=== PATIENT | male | born 1965 | race African-American/Black ===

== ENCOUNTER 2020-06-06 15:37 | Inpatient (IN) ==
[2020-06-06] MEDS ORDERED: SODIUM CHLORIDE 0.9% 1,000 ML IV STA (16:19)
[2020-06-06 16:28] LABS: Bacteria,Urine Occasional /HPF (Few); Bilirubin,Urine Negative (Negative); Blood, Urine Small mg/dL (Negative); Glucose,Urine (UA) Negative (Negative); Ketones,Urine Negative (Negative); Mucus,Urine Occasional /LPF (Occasional); Nitrite,Urine Negative (Negative); Protein,Urine 30 MG/DL; RBC,Urine 9 /HPF (0-4); Squamous Epithelial Cell,Urine Occasional /HPF (0-10); Urine Appearance CLOUDY (Clear); Urine Color Yellow (Yellow); Urine Specific Gravity 1.015 (1.001-1.035); Urine Urobilinogen < 2.0 EU/DL (0.2-1.0); WBC,Urine 581 /HPF (0-6)
[2020-06-06 16:44] LABS: Barbiturates Screen,Urine Negative (Negative); Benzodiazepines Screen,Urine Negative (Negative); Cannabinoid Screen,Urine Negative (Negative); Opiate Screen,Urine Negative (Negative); Phencyclidine Screen,Urine Negative (Negative)
[2020-06-06] MEDS ORDERED: cefTRIAXone 1,000 MG in SODIUM CHLORIDE 0.9% 100 ML IV STA (16:52)
[2020-06-06] MEDS ORDERED: cefTRIAXone 1,000 MG VIAL ONE (16:53)
[2020-06-06 16:59] LABS: Basophils % 0.2 % (0.0-0.8); Hematocrit 45.1 VOL% (42.0-52.0); Hemoglobin 14.9 GM/DL (14.0-18.0); Immature Granulocytes % 1.6 %; Immature Granulocytes Absolute 0.33 #; Lymphocytes # 0.9 10*3/uL (1.4-4.0); Lymphocytes % 4.2 % (21.2-54.2); Mean Corpuscular Volume 89.3 FL (87-102); Mean Platelet Volume 9.4 FL (9.6-12.0); Monocytes % 8.4 % (1.7-12.7); Neutrophils % 85.6 % (38.7-73.9); Platelet Count 201 T/CUMM (130-400); Red Blood Count 5.05 MC/CUMM (3.8-5.5); Red Cell Distribution Width 14.9 % (9.3-17.3); White Blood Count 20.9 T/CUMM (4-12)
[2020-06-06 17:22] LABS: Band Neutrophils 12 % (0-10); Lymphocytes 7 % (20-55); Segmented Neutrophils 75 % (50-85); Total Cells Counted 100
[2020-06-06 17:23] LABS: Albumin 3.7 G/DL (3.4-5.0); Bilirubin,Total 0.5 MG/DL (0.2-1.0); Calcium 8.7 MG/DL (8.5-10.1); Platelet Estimate Normal; Potassium 3.2 MMOL/L (3.5-5.1); Total Protein 8.3 G/DL (6.4-8.3)
[2020-06-06 17:40] LABS: Troponin I < 0.015 NG/ML (0.00-0.045)
[2020-06-06] MEDS ORDERED: ACETAMINOPHEN 325 MG TABLET PO PRN (18:32)
[2020-06-06] MEDS ORDERED: DEXTROSE 50% 25 GM/50 ML VIAL IV PRN ×2 (18:32)
[2020-06-06] MEDS ORDERED: ONDANSETRON 4 MG/2 ML VIAL IV PRN (18:32)
[2020-06-06] MEDS ORDERED: GLUCAGON 1 MG VIAL IM PRN ×2 (18:32)
[2020-06-06] MEDS ORDERED: ALBUTEROL 0.63 MG/3 ML NEB RESP TX PRN (18:45)
[2020-06-06] MEDS: BENZTROPINE 1 MG TABLET PO SCH (21:20)
[2020-06-06] MEDS: SODIUM CHLORIDE 0.9% 1,000 ML IV SCH (21:20)
[2020-06-06] MEDS: carvediloL 12.5 MG TABLET PO SCH (22:20)
[2020-06-06] MEDS: INSULIN REGULAR 100 UNIT/ML SUBCUT SCH (22:21)
[2020-06-07] MEDS: SODIUM CHLORIDE 0.9% 1,000 ML IV SCH ×3 (03:15→21:01)
[2020-06-07 05:49] LABS: Basophils # 0.1 10*3/uL (0.0-0.2); Basophils % 0.5 % (0.0-0.8); Eosinophils # 0.3 10*3/uL (0.0-0.87); Eosinophils % 1.3 % (0.00-10.9); Hematocrit 43.9 VOL% (42.0-52.0); Hemoglobin 14.6 GM/DL (14.0-18.0); Immature Granulocytes % 1.3 %; Immature Granulocytes Absolute 0.24 #; Lymphocytes # 1.5 10*3/uL (1.4-4.0); Lymphocytes % 7.8 % (21.2-54.2); Mean Corpuscular HGB Conc 33.3 GM/DL (32-36); Mean Corpuscular Volume 87.5 FL (87-102); Mean Platelet Volume 9.5 FL (9.6-12.0); Monocytes % 9.3 % (1.7-12.7); Neutrophils % 79.8 % (38.7-73.9); Platelet Count 188 T/CUMM (130-400); Red Blood Count 5.02 MC/CUMM (3.8-5.5); Red Cell Distribution Width 14.9 % (9.3-17.3); White Blood Count 18.5 T/CUMM (4-12)
[2020-06-07] MEDS ORDERED: LEVOTHYROXINE 75 MCG TABLET PO SCH (06:00)
[2020-06-07 06:13] LABS: Bilirubin,Total 0.6 MG/DL (0.2-1.0); Calcium 8.3 MG/DL (8.5-10.1); Osmolality,Calculated 285.4 MOS/KG (273-304); Potassium 2.6 MMOL/L (3.5-5.1); Risk Ratio 1.66; Total Protein 7.3 G/DL (6.4-8.3); VLDL CHOLESTEROL 20.4 MG/DL
[2020-06-07 06:13] LABS: Band Neutrophils 2 % (0-10); Eosinophils 2 % (0-10); Lymphocytes 8 % (20-55); Platelet Estimate Adequate; Segmented Neutrophils 78 % (50-85); Total Cells Counted 100
[2020-06-07] MEDS: cefTRIAXone 1,000 MG in SYRINGE 1 EACH IV SCH (06:19)
[2020-06-07] MEDS: INSULIN REGULAR 100 UNIT/ML SUBCUT SCH ×4 (08:18→21:03)
[2020-06-07] MEDS: SIMVASTATIN 10 MG TABLET PO SCH (09:29)
[2020-06-07] MEDS: ARIPiprazole 10 MG TABLET PO SCH (09:29)
[2020-06-07] MEDS: carvediloL 12.5 MG TABLET PO SCH ×2 (09:29→16:46)
[2020-06-07] MEDS: PANTOPRAZOLE 40 MG TABLET PO SCH (09:29)
[2020-06-07] MEDS: BENZTROPINE 1 MG TABLET PO SCH ×2 (09:29→21:01)
[2020-06-07] MEDS: TAMSULOSIN 0.4 MG CAPSULE PO SCH (09:30)
[2020-06-07] MEDS: buPROPion SR 150 MG TABLET PO SCH (09:31)
[2020-06-07] MEDS: POTASSIUM CHLORIDE RIDER 10 MEQ in PREMIX 1 EACH IV PRN ×5 (09:46→14:15)
[2020-06-07] MEDS: NYSTATIN 500,000 UNIT/5 ML UDCUP SWISH/SWAL SCH ×3 (14:15→21:01)
[2020-06-08] MEDS: SODIUM CHLORIDE 0.9% 1,000 ML IV SCH ×4 (06:16→21:18)
[2020-06-08] MEDS: LEVOTHYROXINE 50 MCG TABLET PO SCH (06:17)
[2020-06-08] MEDS: cefTRIAXone 1,000 MG in SYRINGE 1 EACH IV SCH (06:17)
[2020-06-08 06:26] LABS: Basophils # 0.1 10*3/uL (0.0-0.2); Basophils % 0.5 % (0.0-0.8); Eosinophils # 0.5 10*3/uL (0.0-0.87); Eosinophils % 4.9 % (0.00-10.9); Hematocrit 39.1 VOL% (42.0-52.0); Immature Granulocytes % 0.9 %; Immature Granulocytes Absolute 0.09 #; Lymphocytes # 1.1 10*3/uL (1.4-4.0); Lymphocytes % 10.6 % (21.2-54.2); Mean Corpuscular HGB Conc 33.2 GM/DL (32-36); Mean Corpuscular Volume 87.9 FL (87-102); Mean Platelet Volume 9.4 FL (9.6-12.0); Monocytes % 7.6 % (1.7-12.7); Neutrophils % 75.5 % (38.7-73.9); Platelet Count 159 T/CUMM (130-400); Red Blood Count 4.45 MC/CUMM (3.8-5.5); Red Cell Distribution Width 14.8 % (9.3-17.3); White Blood Count 10.4 T/CUMM (4-12)
[2020-06-08 06:54] LABS: Osmolality,Calculated 279.5 MOS/KG (273-304); Potassium 3.2 MMOL/L (3.5-5.1)
[2020-06-08] MEDS: INSULIN REGULAR 100 UNIT/ML SUBCUT SCH ×4 (08:07→21:19)
[2020-06-08] MEDS: SIMVASTATIN 10 MG TABLET PO SCH (09:35)
[2020-06-08] MEDS: PANTOPRAZOLE 40 MG TABLET PO SCH (09:35)
[2020-06-08] MEDS: BENZTROPINE 1 MG TABLET PO SCH ×2 (09:35→21:18)
[2020-06-08] MEDS: buPROPion SR 150 MG TABLET PO SCH (09:35)
[2020-06-08] MEDS: TAMSULOSIN 0.4 MG CAPSULE PO SCH ×2 (09:35→21:18)
[2020-06-08] MEDS: ARIPiprazole 10 MG TABLET PO SCH (09:35)
[2020-06-08] MEDS: NYSTATIN 500,000 UNIT/5 ML UDCUP SWISH/SWAL SCH ×4 (09:36→21:19)
[2020-06-08] MEDS: carvediloL 12.5 MG TABLET PO SCH ×2 (09:36→16:00)
[2020-06-08] MEDS: POTASSIUM CHLORIDE RIDER 10 MEQ in PREMIX 1 EACH IV PRN ×7 (09:36→20:29)
[2020-06-09 06:12] LABS: Calcium 8.6 MG/DL (8.5-10.1); Osmolality,Calculated 275.7 MOS/KG (273-304); Potassium 3.6 MMOL/L (3.5-5.1)
[2020-06-09] MEDS: SODIUM CHLORIDE 0.9% 1,000 ML IV SCH ×3 (06:16→23:25)
[2020-06-09] MEDS: cefTRIAXone 1,000 MG in SYRINGE 1 EACH IV SCH (06:17)
[2020-06-09] MEDS: LEVOTHYROXINE 50 MCG TABLET PO SCH (06:17)
[2020-06-09] MEDS: INSULIN REGULAR 100 UNIT/ML SUBCUT SCH ×4 (08:34→23:25)
[2020-06-09] MEDS: carvediloL 12.5 MG TABLET PO SCH ×2 (08:45→16:58)
[2020-06-09] MEDS: PANTOPRAZOLE 40 MG TABLET PO SCH (08:46)
[2020-06-09] MEDS: BENZTROPINE 1 MG TABLET PO SCH ×2 (08:46→23:24)
[2020-06-09] MEDS: TAMSULOSIN 0.4 MG CAPSULE PO SCH ×2 (08:46→23:25)
[2020-06-09] MEDS: SIMVASTATIN 10 MG TABLET PO SCH (08:46)
[2020-06-09] MEDS: buPROPion SR 150 MG TABLET PO SCH (08:47)
[2020-06-09] MEDS: MEROPENEM 500 MG in SODIUM CHLORIDE 0.9% 100 ML IV SCH ×3 (08:47→23:24)
[2020-06-09] MEDS: ARIPiprazole 10 MG TABLET PO SCH (08:57)
[2020-06-09] MEDS: NYSTATIN 500,000 UNIT/5 ML UDCUP SWISH/SWAL SCH ×4 (08:58→23:25)
[2020-06-09] MEDS: POTASSIUM CHLORIDE 20 MEQ TABLET PO PRN (13:07)
[2020-06-10] MEDS: MEROPENEM 500 MG in SODIUM CHLORIDE 0.9% 100 ML IV SCH ×4 (03:34→20:42)
[2020-06-10] MEDS: LEVOTHYROXINE 50 MCG TABLET PO SCH (06:26)
[2020-06-10] MEDS: INSULIN REGULAR 100 UNIT/ML SUBCUT SCH ×4 (07:30→21:45)
[2020-06-10 07:36] LABS: Basophils % 0.5 % (0.0-0.8); Eosinophils # 0.4 10*3/uL (0.0-0.87); Hematocrit 37.5 VOL% (42.0-52.0); Hemoglobin 12.5 GM/DL (14.0-18.0); Immature Granulocytes % 1.7 %; Lymphocytes # 1.4 10*3/uL (1.4-4.0); Mean Corpuscular HGB Conc 33.3 GM/DL (32-36); Mean Corpuscular Volume 88.7 FL (87-102); Mean Platelet Volume 8.7 FL (9.6-12.0); Monocytes % 13.2 % (1.7-12.7); Neutrophils % 53.6 % (38.7-73.9); Platelet Count 165 T/CUMM (130-400); Red Blood Count 4.23 MC/CUMM (3.8-5.5); Red Cell Distribution Width 14.7 % (9.3-17.3); White Blood Count 5.8 T/CUMM (4-12)
[2020-06-10 07:58] LABS: Calcium 8.3 MG/DL (8.5-10.1); Osmolality,Calculated 280.5 MOS/KG (273-304); Potassium 3.6 MMOL/L (3.5-5.1)
[2020-06-10 08:16] LABS: Eosinophils 5 % (0-10); Lymphocytes 33 % (20-55); Segmented Neutrophils 61 % (50-85); Total Cells Counted 100
[2020-06-10 08:17] LABS: Atypical Lymphocytes 1+; Hypochromasia 1+; Microcytosis Slight; Platelet Estimate Decreased; Polychromasia Few
[2020-06-10] MEDS: ARIPiprazole 10 MG TABLET PO SCH (09:27)
[2020-06-10] MEDS: TAMSULOSIN 0.4 MG CAPSULE PO SCH ×2 (09:28→20:43)
[2020-06-10] MEDS: buPROPion SR 150 MG TABLET PO SCH (09:28)
[2020-06-10] MEDS: SIMVASTATIN 10 MG TABLET PO SCH (09:29)
[2020-06-10] MEDS: carvediloL 12.5 MG TABLET PO SCH ×2 (09:29→16:41)
[2020-06-10] MEDS: NYSTATIN 500,000 UNIT/5 ML UDCUP SWISH/SWAL SCH ×4 (09:29→20:42)
[2020-06-10] MEDS: PANTOPRAZOLE 40 MG TABLET PO SCH (09:29)
[2020-06-10] MEDS: BENZTROPINE 1 MG TABLET PO SCH ×2 (09:29→20:43)
[2020-06-10] MEDS: POTASSIUM CHLORIDE 20 MEQ TABLET PO PRN ×2 (10:42→16:41)
[2020-06-10] MEDS: SODIUM CHLORIDE 0.9% 1,000 ML IV SCH (13:48)
[2020-06-11] MEDS: SODIUM CHLORIDE 0.9% 1,000 ML IV SCH ×2 (00:32→08:13)
[2020-06-11] MEDS: MEROPENEM 500 MG in SODIUM CHLORIDE 0.9% 100 ML IV SCH ×4 (03:25→22:34)
[2020-06-11] MEDS: LEVOTHYROXINE 50 MCG TABLET PO SCH (05:13)
[2020-06-11 05:17] LABS: Basophils # 0.1 10*3/uL (0.0-0.2); Eosinophils # 0.5 10*3/uL (0.0-0.87); Eosinophils % 7.8 % (0.00-10.9); Hematocrit 36.4 VOL% (42.0-52.0); Hemoglobin 11.9 GM/DL (14.0-18.0); Immature Granulocytes Absolute 0.12 #; Lymphocytes % 33.2 % (21.2-54.2); Mean Corpuscular HGB Conc 32.7 GM/DL (32-36); Mean Corpuscular Volume 87.9 FL (87-102); Mean Platelet Volume 9.1 FL (9.6-12.0); Platelet Count 172 T/CUMM (130-400); Red Blood Count 4.14 MC/CUMM (3.8-5.5); Red Cell Distribution Width 14.8 % (9.3-17.3); White Blood Count 5.9 T/CUMM (4-12)
[2020-06-11 05:33] LABS: Calcium 8.2 MG/DL (8.5-10.1); Osmolality,Calculated 284.1 MOS/KG (273-304); Potassium 3.8 MMOL/L (3.5-5.1)
[2020-06-11 08:53] LABS: Anisocytosis Slight; Platelet Estimate Normal
[2020-06-11] MEDS: carvediloL 12.5 MG TABLET PO SCH ×2 (09:11→16:30)
[2020-06-11] MEDS: SIMVASTATIN 10 MG TABLET PO SCH (09:11)
[2020-06-11] MEDS: TAMSULOSIN 0.4 MG CAPSULE PO SCH ×2 (09:11→22:35)
[2020-06-11] MEDS: NYSTATIN 500,000 UNIT/5 ML UDCUP SWISH/SWAL SCH ×4 (09:11→22:35)
[2020-06-11] MEDS: PANTOPRAZOLE 40 MG TABLET PO SCH (09:12)
[2020-06-11] MEDS: ARIPiprazole 10 MG TABLET PO SCH (09:12)
[2020-06-11] MEDS: BENZTROPINE 1 MG TABLET PO SCH ×2 (09:12→22:35)
[2020-06-11] MEDS: buPROPion SR 150 MG TABLET PO SCH (09:13)
[2020-06-11] MEDS: INSULIN REGULAR 100 UNIT/ML SUBCUT SCH ×4 (09:13→22:35)
[2020-06-11] MEDS: hydrALAZINE 25 MG TABLET PO SCH ×2 (14:32→22:35)
[2020-06-12] MEDS: MEROPENEM 500 MG in SODIUM CHLORIDE 0.9% 100 ML IV SCH ×4 (02:48→20:59)
[2020-06-12] MEDS: LEVOTHYROXINE 50 MCG TABLET PO SCH (05:25)
[2020-06-12 05:50] LABS: Basophils % 0.7 % (0.0-0.8); Eosinophils # 0.5 10*3/uL (0.0-0.87); Eosinophils % 8.1 % (0.00-10.9); Hemoglobin 12.5 GM/DL (14.0-18.0); Immature Granulocytes % 2.5 %; Immature Granulocytes Absolute 0.15 #; Lymphocytes # 2.1 10*3/uL (1.4-4.0); Lymphocytes % 35.1 % (21.2-54.2); Mean Corpuscular HGB Conc 32.9 GM/DL (32-36); Monocytes % 11.9 % (1.7-12.7); Neutrophils % 41.7 % (38.7-73.9); Platelet Count 197 T/CUMM (130-400); Red Blood Count 4.27 MC/CUMM (3.8-5.5); Red Cell Distribution Width 14.6 % (9.3-17.3)
[2020-06-12 06:05] LABS: Alanine Aminotransferase 44 U/L (16-61); Albumin 2.8 G/DL (3.4-5.0); Alkaline Phosphatase 62 U/L (45-117); Aspartate Amino Transferase 26 U/L (0-37); Bilirubin,Total < 0.39 MG/DL (0.2-1.0); Blood Urea Nitrogen 10 MG/DL (7-18); Calcium 8.9 MG/DL (8.5-10.1); Carbon Dioxide 26 MMOL/L (21-32); Estimated Glom Filtration Rate 88 ML/MIN; Glucose 131 MG/DL (74-106); Osmolality,Calculated 277.5 MOS/KG (273-304); Potassium 3.7 MMOL/L (3.5-5.1); Sodium 139 MMOL/L (136-145); Total Protein 6.7 G/DL (6.4-8.3)
[2020-06-12 06:28] LABS: Anisocytosis 1+; Band Neutrophils 3 % (0-10); Eosinophils 6 % (0-10); Lymphocytes 38 % (20-55); Platelet Estimate Normal; Segmented Neutrophils 40 % (50-85); Total Cells Counted 100
[2020-06-12 06:29] LABS: Macrocytosis Slight
[2020-06-12] MEDS: INSULIN REGULAR 100 UNIT/ML SUBCUT SCH ×4 (08:45→20:59)
[2020-06-12] MEDS: ARIPiprazole 10 MG TABLET PO SCH (09:11)
[2020-06-12] MEDS: TAMSULOSIN 0.4 MG CAPSULE PO SCH ×2 (09:12→20:59)
[2020-06-12] MEDS: buPROPion SR 150 MG TABLET PO SCH (09:12)
[2020-06-12] MEDS: POTASSIUM CHLORIDE 20 MEQ TABLET PO PRN ×3 (09:12→15:07)
[2020-06-12] MEDS: PANTOPRAZOLE 40 MG TABLET PO SCH (09:13)
[2020-06-12] MEDS: carvediloL 12.5 MG TABLET PO SCH ×2 (09:13→17:17)
[2020-06-12] MEDS: SIMVASTATIN 10 MG TABLET PO SCH (09:13)
[2020-06-12] MEDS: hydrALAZINE 25 MG TABLET PO SCH ×3 (09:13→20:59)
[2020-06-12] MEDS: BENZTROPINE 1 MG TABLET PO SCH ×2 (09:13→20:59)
[2020-06-12] MEDS: NYSTATIN 500,000 UNIT/5 ML UDCUP SWISH/SWAL SCH ×4 (09:14→20:59)
[2020-06-13] MEDS: MEROPENEM 500 MG in SODIUM CHLORIDE 0.9% 100 ML IV SCH ×4 (02:14→21:34)
[2020-06-13] MEDS: LEVOTHYROXINE 50 MCG TABLET PO SCH (05:07)
[2020-06-13 06:45] LABS: Basophils # 0.1 10*3/uL (0.0-0.2); Basophils % 1.3 % (0.0-0.8); Eosinophils # 0.5 10*3/uL (0.0-0.87); Eosinophils % 7.5 % (0.00-10.9); Hematocrit 40.7 VOL% (42.0-52.0); Hemoglobin 13.4 GM/DL (14.0-18.0); Immature Granulocytes % 3.3 %; Lymphocytes # 2.4 10*3/uL (1.4-4.0); Lymphocytes % 39.5 % (21.2-54.2); Mean Corpuscular HGB Conc 32.9 GM/DL (32-36); Mean Corpuscular Volume 88.1 FL (87-102); Monocytes % 10.3 % (1.7-12.7); Neutrophils % 38.1 % (38.7-73.9); Platelet Count 234 T/CUMM (130-400); Red Blood Count 4.62 MC/CUMM (3.8-5.5); Red Cell Distribution Width 14.6 % (9.3-17.3); White Blood Count 6.1 T/CUMM (4-12)
[2020-06-13 07:07] LABS: Eosinophils 4 % (0-10); Lymphocytes 43 % (20-55); Platelet Estimate Adequate; Segmented Neutrophils 44 % (50-85); Total Cells Counted 100
[2020-06-13 07:08] LABS: Atypical Lymphocytes Few
[2020-06-13 07:12] LABS: Calcium 8.5 MG/DL (8.5-10.1); Osmolality,Calculated 280.4 MOS/KG (273-304); Potassium 3.8 MMOL/L (3.5-5.1)
[2020-06-13] MEDS: INSULIN REGULAR 100 UNIT/ML SUBCUT SCH ×4 (08:12→21:33)
[2020-06-13] MEDS: ARIPiprazole 10 MG TABLET PO SCH (08:13)
[2020-06-13] MEDS: TAMSULOSIN 0.4 MG CAPSULE PO SCH ×2 (08:14→21:33)
[2020-06-13] MEDS: carvediloL 12.5 MG TABLET PO SCH ×2 (08:14→16:55)
[2020-06-13] MEDS: NYSTATIN 500,000 UNIT/5 ML UDCUP SWISH/SWAL SCH ×4 (08:14→21:33)
[2020-06-13] MEDS: hydrALAZINE 25 MG TABLET PO SCH ×3 (08:14→21:33)
[2020-06-13] MEDS: POTASSIUM CHLORIDE 20 MEQ TABLET PO PRN (08:14)
[2020-06-13] MEDS: BENZTROPINE 1 MG TABLET PO SCH ×2 (08:14→21:33)
[2020-06-13] MEDS: buPROPion SR 150 MG TABLET PO SCH (08:15)
[2020-06-13] MEDS: SIMVASTATIN 10 MG TABLET PO SCH (08:15)
[2020-06-13] MEDS: PANTOPRAZOLE 40 MG TABLET PO SCH (08:15)
[2020-06-13] MEDS ORDERED: SODIUM CHLORIDE 0.9% 1,000 ML IV SCH (08:30)
[2020-06-14] MEDS: MEROPENEM 500 MG in SODIUM CHLORIDE 0.9% 100 ML IV SCH ×3 (03:28→14:24)
[2020-06-14 05:37] LABS: Basophils # 0.1 10*3/uL (0.0-0.2); Basophils % 0.8 % (0.0-0.8); Eosinophils # 0.4 10*3/uL (0.0-0.87); Eosinophils % 5.8 % (0.00-10.9); Hemoglobin 13.3 GM/DL (14.0-18.0); Immature Granulocytes % 3.8 %; Immature Granulocytes Absolute 0.24 #; Lymphocytes # 2.3 10*3/uL (1.4-4.0); Lymphocytes % 36.7 % (21.2-54.2); Mean Corpuscular HGB Conc 33.3 GM/DL (32-36); Mean Corpuscular Volume 86.8 FL (87-102); Mean Platelet Volume 9.2 FL (9.6-12.0); Monocytes % 10.4 % (1.7-12.7); Neutrophils % 42.5 % (38.7-73.9); Platelet Count 254 T/CUMM (130-400); Red Blood Count 4.61 MC/CUMM (3.8-5.5); Red Cell Distribution Width 14.6 % (9.3-17.3); White Blood Count 6.4 T/CUMM (4-12)
[2020-06-14 05:59] LABS: Calcium 8.7 MG/DL (8.5-10.1); Osmolality,Calculated 282.3 MOS/KG (273-304); Potassium 3.6 MMOL/L (3.5-5.1)
[2020-06-14] MEDS: LEVOTHYROXINE 50 MCG TABLET PO SCH (06:11)
[2020-06-14] MEDS: INSULIN REGULAR 100 UNIT/ML SUBCUT SCH ×2 (09:14→12:15)
[2020-06-14] MEDS: ARIPiprazole 10 MG TABLET PO SCH (09:15)
[2020-06-14] MEDS: PANTOPRAZOLE 40 MG TABLET PO SCH (09:15)
[2020-06-14] MEDS: carvediloL 12.5 MG TABLET PO SCH (09:16)
[2020-06-14] MEDS: hydrALAZINE 25 MG TABLET PO SCH (09:16)
[2020-06-14] MEDS: buPROPion SR 150 MG TABLET PO SCH (09:16)
[2020-06-14] MEDS: TAMSULOSIN 0.4 MG CAPSULE PO SCH (09:17)
[2020-06-14] MEDS: BENZTROPINE 1 MG TABLET PO SCH (09:17)
[2020-06-14] MEDS: SIMVASTATIN 10 MG TABLET PO SCH (09:17)
[2020-06-14] MEDS: NYSTATIN 500,000 UNIT/5 ML UDCUP SWISH/SWAL SCH ×2 (09:17→13:16)
[2020-06-14 11:43] VITALS: BP 130/66
[2020-06-14] MEDS ORDERED: ERTAPENEM 1,000 MG in SODIUM CHLORIDE 0.9% 100 ML IV ONE (12:00)
== END 2020-06-14 15:07 | disposition home health service (06) | DRG 690 ==
LOC: N.ED 15:37 → N.EDINP 15:37 → SUATTDRO 18:52 → N.TELES 20:46 → SUATTDRO 06-09 13:18
PROVIDERS: ADMIT Nurse Practitioner Family; ATTEND Emergency Medicine